=== PATIENT | female | born 1980 | race Caucasian/White ===

== ENCOUNTER 2023-02-27 17:34 | Emergency (ER) | payer OTHER ==
[~2023-02-27] VITALS: Ht 165.1 cm; Wt 100.0 kg
[2023-02-27 18:28] VITALS: TEMP 98
[2023-02-27] MEDS ORDERED: NYSTATIN 30 GM CREAM TP ONE (23:15)
[2023-02-28 00:50] VITALS: BP 130/89; PULSE 75; RESP 12
== END 2023-02-28 01:11 ==
LOC: EMS 17:36
DX: B35.4 Tinea corporis (principal); F20.9 Schizophrenia, unspecified; F31.9 Bipolar disorder, unspecified; F17.210 Nicotine dependence, cigarettes, uncomplicated; F12.90 Cannabis use, unspecified, uncomplicated; F15.90 Other stimulant use, unspecified, uncomplicated; Z90.49 Acquired absence of other specified parts of digestive tract; Z98.51 Tubal ligation status; Z88.0 Allergy status to penicillin
CPT/HCPCS: 99285; Z7502; Z7610